=== PATIENT | female | born 2000 | race Hispanic/Latino ===

== ENCOUNTER 2023-05-05 14:50 | Emergency (ER) | payer OTHER, SELFPAY ==
[2023-05-05] MEDS ORDERED: Ibuprofen 200 MG TAB ONE (15:13)
== END 2023-05-05 15:30 | disposition home or self-care (01) ==
LOC: BURERS 14:50
DX: M62.830 Muscle spasm of back (principal); I10 Essential (primary) hypertension; F17.210 Nicotine dependence, cigarettes, uncomplicated; V89.2XXA Person injured in unspecified motor-vehicle accident, traffic, initial encounter; Z55.6 Problems related to health literacy
CPT/HCPCS: 99284